=== PATIENT | male | born 1945 | race Caucasian/White ===

== ENCOUNTER 2021-10-23 09:35 | Emergency (ER) | payer MEDICARE ==
[2021-10-23 09:51] VITALS: BP 119/67; PULSE 90; RESP 18; TEMP 98.4
--- NOTE | 2021-10-23 11:18 | ED ---
General Adult HPI - General Chief complaint: Extremity Injury, Lower Stated complaint: Foot issues Time Seen by Provider: 10/23/21 10:52 Source: patient, RN notes reviewed, old records reviewed Mode of arrival: ambulatory Limitations: no limitations - History of Present Illness Initial comments: 76-year-old male presenting for evaluation of nonhealing wound to the left second toe. Patient has been on clindamycin. He wanted a wound evaluation. He has history diabetes. He states that he had a remote injury to this toe many years in the past and has had some issues with recurrent infection. He denies fever. Denies erythema or swelling to the foot. The infection is isolated to the left second toe. - Related Data Previous Rx's Medication Instructions Recorded Clindamycin [Cleocin] 300 mg PO TID 10 Days #60 cap 10/23/21 Allergies Allergy/AdvReac Type Severity Reaction Status Date / Time No Known Allergies Allergy Verified 10/23/21 09:51 Review of Systems ROS Statement: Those systems with pertinent positive or pertinent negative responses have been documented in the HPI. ROS Other: All systems not noted in ROS Statement are negative. Past Medical History Past Medical History: Diabetes Mellitus, Hypertension Past Surgical History: Orthopedic Surgery Past Psychological History: No Psychological Hx Reported Smoking Status: Never smoker Past Alcohol Use History: Occasional Past Drug Use History: None Reported General Exam Limitations: no limitations General appearance: alert, in no apparent distress Head exam: Present: atraumatic, normocephalic Eye exam: Present: normal appearance ENT exam: Present: normal exam Neck exam: Present: normal inspection. Absent: tenderness, meningismus Respiratory exam: Present: normal lung sounds bilaterally. Absent: respiratory distress, wheezes Cardiovascular Exam: Present: regular rate, normal rhythm GI/Abdominal exam: Absent: distended Extremities exam: Present: other ((, Distal second toe dry gangrene without erythema into the toe or foot. Distal pulses are palpable. Normal cap refill.) Course Vital Signs 10/23/21 09:44 Temperature 98.4 F Pulse Rate 90 Respiratory 18 Rate Blood Pressure 119/67 O2 Sat by Pulse 99 Oximetry Medical Decision Making - Medical Decision Making 76-year-old male with dry gangrene to the left second toe. The surrounding tissue appears viable, there is normal cap refill, the distal pulses are intact. We did discuss the possibility of wound care as an outpatient with strict return parameters and the patient is agreeable with this plan. I discussed case with his primary care physician Dr. Day for close follow-up. Will continue clindamycin. Disposition Clinical Impression: Dry gangrene Disposition: HOME SELF-CARE Condition: Fair Instructions (If sedation given, give patient instructions): Diabetic Foot Ulcers (ED), Gangrene (DC) Prescriptions: Clindamycin [Cleocin] 300 mg PO TID 10 Days #60 cap Is patient prescribed a controlled substance at d/c from ED?: No Referrals: Cruzito Day MD [Primary Care Provider] - 1-2 days [facility] [NON-STAFF] - 1-2 days Lino Gonzalez DO [Doctor of Osteopathic Medicine] - 1-2 days Time of Disposition: 11:16
== END 2021-10-23 11:34 | disposition home or self-care (01) ==
LOC: EC 09:35
DX: I70.262 Atherosclerosis of native arteries of extremities with gangrene, left leg (principal); E11.9 Type 2 diabetes mellitus without complications; I10 Essential (primary) hypertension
CPT/HCPCS: 99283

== ENCOUNTER → 2021-11-14 | Outpatient (CLI) | payer MEDICARE ==
--- NOTE | 2021-11-14 15:33 | XR ---
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 FINDINGS: There is erosive changes of the second digit proximal phalanx. Additional osseous demineralization is present. A lucency is seen extending along the medial aspect of the proximal phalanx at the metatars ophalangeal joint. There is scattered osteoarthrosis changes with joint space narrowing osteophytes m ost pronounced at the first metatarsal tarsal phalangeal joint. The distal and middle phalanx of the second digit are presumably surgically absent. IMPRESSION: 1. Erosive changes of the second digit proximal phalanx with amputation of the distal and mid phalan x. 2. Similar lucency seen extending to the metatarsophalangeal joint suspicious for fracture.
--- NOTE | 2021-11-15 09:05 | US ---
EXAMINATION TYPE: US arterial LE single level DATE OF EXAM: 11/14/2021 3:03 PM CLINICAL HISTORY: I73.9 PERIPHERAL VASCULAR DISEASE, UNSPECIFIED. History of hypertension and diabete s. History of right leg [id number] amputation. Left second toe numbness. Doppler Waveforms: Left: Multiphasic to monophasic Ankle-Brachial Indices: Right: below the knee amputation Left: 1.12 Toe Brachial Indices: Right: below the knee amputation Left: 0.59 IMPRESSION: Mildly diminished TBI left toe consistent at least mild peripheral arterial disease in t he left foot. Further workup and follow-up advised.
== END | disposition home or self-care (01) ==
LOC: RADUSWWP 14:29
PROVIDERS: ATTEND Podiatrist
DX: I73.9 Peripheral vascular disease, unspecified (principal); L97.522 Non-pressure chronic ulcer of other part of left foot with fat layer exposed
CPT/HCPCS: 93922

== ENCOUNTER → 2022-01-02 | Outpatient (CLI) | payer MEDICARE ==
--- NOTE | 2022-01-02 09:48 | XR ---
Left foot HISTORY: Amputation, diabetes, abnormal plain film 3 views of the left foot Correlation to prior exam 11/14/2021 There is been interval amputation at the level of the proximal aspect of the proximal phalanx of the second digit of the left foot. There is some lucency present at the remaining portion of the proximal phalanx which could be related to patient's procedure, difficult to exclude residual infection. Soft tissue swelling is present. Arthropathy changes are again noted at the first digit and remaining int erphalangeal joints, tarsal bones. Bone mineralization is reduced. There is a plantar calcaneal spur. Soft tissue arterial calcifications noted. IMPRESSION: Postop changes as described. Podiatry follow-up.
== END | disposition home or self-care (01) ==
LOC: RADXRMAIN 08:26
PROVIDERS: ATTEND Podiatrist
DX: L97.522 Non-pressure chronic ulcer of other part of left foot with fat layer exposed (principal)